=== PATIENT | male | born 1960 | race Asian ===

== ENCOUNTER 2021-09-28 10:50 | Inpatient (IN) | payer BC ==
[~2021-09-28] VITALS: Ht 175.3 cm; Wt 88.5 kg
[2021-09-28 11:07] VITALS: BP_SYST 128
[2021-09-28] MEDS ORDERED: ASPIRIN 81 MG TAB.CHEW PO ONE (11:30)
[2021-09-28] MEDS ORDERED: ASPIRIN 81 MG TAB.CHEW ONE (11:51)
[2021-09-28 12:31] LABS: BASOPHILS % (AUTO) 0.7 % (0.0-2.0); EOSINOPHILS # (AUTO) 0.1 K/uL (0.0-0.4); EOSINOPHILS % (AUTO) 1.5 % (0.0-4.0); HEMATOCRIT 42.9 % (36-54); HEMOGLOBIN 14.6 g/dL (14.0-18.0); LYMPHOCYTES # (AUTO) 1.4 K/uL (1.0-5.5); MEAN CORPUSCULAR HEMOGLOBIN 30 pg (27-31); MEAN CORPUSCULAR HGB CONC 34 % (32-36); MEAN CORPUSCULAR VOLUME 87 fL (79.0-98.0); MONOCYTES # (AUTO) 0.3 K/uL (0.0-1.0); MONOCYTES % (AUTO) 4.7 % (1.7-9.3); NEUTROPHILS # (AUTO) 5.1 K/uL (1.8-7.7); NEUTROPHILS % (AUTO) 73.1 % (40.0-70.0); PLATELET COUNT (AUTO) 157 K/uL (130-430); RED BLOOD CELL COUNT(AUTO) 4.91 MIL/uL (4.2-6.2); RED CELL DISTRIBUTION WIDTH 13.9 % (9.0-15.0)
[2021-09-28 12:38] LABS: ANION GAP 8 (5-15); CHLORIDE 104 mmol/L (98-107); GFR AFRICAN AMERICAN 88 mL/min (>90); GLUCOSE 110 mg/dL (70-99); SODIUM SERUM 138 mmol/L (136-145); UREA NITROGEN, BLOOD 16 mg/dL (8-21)
[2021-09-28 12:42] LABS: ALANINE AMINOTRANSFERASE 35 U/L (12-78); ALBUMIN 3.9 g/dL (3.4-4.8); ASPARTATE AMINOTRANSFERASE 34 U/L (10-37); TOTAL BILIRUBIN 1.5 mg/dL (0.0-1.0)
[2021-09-28] MEDS ORDERED: AMLO5TAB4 PO (13:45)
[2021-09-28] MEDS ORDERED: ESCI10TA PO (13:45)
[2021-09-28] MEDS ORDERED: CLON0.5T4 PO (13:45)
[2021-09-28] MEDS ORDERED: ROSU5TAB PO (13:45)
[2021-09-28] MEDS ORDERED: VALS320T2 PO (13:45)
[2021-09-28] MEDS ORDERED: ZOLPIDEM TARTRATE 5 MG TABLET PO PRN (14:15)
[2021-09-28] MEDS ORDERED: ACETAMINOPHEN 500 MG TABLET PO PRN (14:15)
[2021-09-28] MEDS ORDERED: MORPHINE 2 MG/ML INJ. SYRINGE IVP PRN (14:15)
[2021-09-28] MEDS ORDERED: HYDROcodone/ACETAMIN 7.5-325 MG TAB PO PRN (14:15)
[2021-09-28] MEDS ORDERED: DOCUSATE SODIUM 100 MG/10 ML UDC PO PRN (14:15)
[2021-09-28] MEDS ORDERED: ONDANSETRON HCL 4 MG/2 ML VIAL IVP PRN (14:15)
[2021-09-28] MEDS ORDERED: guaiFENesin/DEXTROMETHORPHAN 10 ML UDC PO PRN (14:15)
[2021-09-28 14:43] LABS: FREE T4 (FREE THYROXINE) 1.2 ng/dl (0.8-1.5); THYROID STIMULATING HORMONE 1.41 uIu/mL (0.36-3.74)
[2021-09-28 16:09] LABS: PROTHROMBIN TIME 10.6 SECS (9.5-12.5)
[2021-09-28 16:15] VITALS: BP_SYST 131
[2021-09-28] MEDS: NACL 0.9% 1,000 ML IV SCH (16:56)
[2021-09-28] MEDS ORDERED: ESCITALOPRAM OXALATE 10 MG TABLET PO SCH (21:00)
[2021-09-28] MEDS ORDERED: CITALOPRAM HYDROBROMIDE 20 MG TABLET PO SCH (21:00)
[2021-09-29 00:18] VITALS: BP_SYST 122
[2021-09-29] MEDS: NACL 0.9% 1,000 ML IV SCH (06:24)
[2021-09-29 08:00] VITALS: BP_SYST 143
[2021-09-29] MEDS ORDERED: clonazePAM 0.5 MG TABLET PO SCH (09:00)
[2021-09-29] MEDS ORDERED: amLODIPine BESYLATE 5 MG TABLET PO SCH (09:00)
[2021-09-29] MEDS ORDERED: PANTOPRAZOLE SODIUM 40 MG TAB PO SCH (09:00)
[2021-09-29] MEDS ORDERED: ATORVASTATIN 20 MG TABLET PO SCH (09:00)
[2021-09-29] MEDS ORDERED: LOSARTAN POTASSIUM 50 MG TABLET (COZAAR) PO SCH (09:00)
[2021-09-29] MEDS ORDERED: VALSARTAN 160 MG TABLET (DIOVAN) PO SCH (09:00)
[2021-09-29] MEDS ORDERED: POTASSIUM CHLORIDE 20 MEQ TAB.PRT.SR PO PRN (09:00)
[2021-09-29] MEDS ORDERED: ROSUVASTATIN CALCIUM 5 MG/TAB (CRESTOR) PO SCH (09:00)
[2021-09-29 11:21] LABS: BASOPHILS # (AUTO) 0.1 K/uL (0.0-0.2); BASOPHILS % (AUTO) 1.7 % (0.0-2.0); EOSINOPHILS # (AUTO) 0.1 K/uL (0.0-0.4); EOSINOPHILS % (AUTO) 1.6 % (0.0-4.0); HEMATOCRIT 42.4 % (36-54); HEMOGLOBIN 14.6 g/dL (14.0-18.0); LYMPHOCYTES # (AUTO) 1.1 K/uL (1.0-5.5); LYMPHOCYTES % (AUTO) 17.6 % (20.5-51.5); MEAN CORPUSCULAR HEMOGLOBIN 30 pg (27-31); MEAN CORPUSCULAR HGB CONC 34 % (32-36); MEAN CORPUSCULAR VOLUME 87 fL (79.0-98.0); MONOCYTES # (AUTO) 0.3 K/uL (0.0-1.0); MONOCYTES % (AUTO) 5.2 % (1.7-9.3); NEUTROPHILS # (AUTO) 4.8 K/uL (1.8-7.7); NEUTROPHILS % (AUTO) 73.9 % (40.0-70.0); PLATELET COUNT (AUTO) 157 K/uL (130-430); RED BLOOD CELL COUNT(AUTO) 4.87 MIL/uL (4.2-6.2); WHITE BLOOD COUNT (AUTO) 6.5 K/uL (4.8-10.8)
[2021-09-29 11:52] LABS: CALCIUM 9.1 mg/dL (8.4-11.0); CREATININE 1.05 mg/dL (0.55-1.30); POTASSIUM 4.2 mmol/L (3.5-5.1)
[2021-09-29] MEDS ORDERED: ASPI-1155 PO (12:46)
[2021-09-29 13:10] VITALS: BP_SYST 143
== END 2021-09-29 13:55 | disposition home or self-care (01) | DRG 313 ==
LOC: SED 10:50 → STU 14:09
PROVIDERS: ADMIT Family Medicine; ATTEND Family Medicine
DX: R07.89 Other chest pain (principal); F41.9 Anxiety disorder, unspecified; F32.A Depression, unspecified; I10 Essential (primary) hypertension; E78.00 Pure hypercholesterolemia, unspecified; K21.9 Gastro-esophageal reflux disease without esophagitis; Z20.822 Contact with and (suspected) exposure to COVID-19; E78.5 Hyperlipidemia, unspecified; Z79.899 Other long term (current) drug therapy; Z87.891 Personal history of nicotine dependence; Z79.82 Long term (current) use of aspirin
CPT/HCPCS: 36415; 71045; 80048; 80053; 80061; 82150; 83036; 83690; 83735; 83880; 84100; 84439; 84443; 84484; 85025; 85379; 85610-TC; 85730-TC; 93005; 93017; 93306; 99285; G0378